=== PATIENT | female | born 1950 | race Caucasian/White ===

== ENCOUNTER 2018-05-28 07:02 | Inpatient (IN) | payer OTHER ==
[~2018-05-28 07:02] MED LIST: ROPIVACAINE 0.2% 80 MG, EPINEPHrine 0.2 MG, KETOROLAC TROMETHAMINE 30 MG in SYRINGE 0 ML IU ONE; TRANEXAMIC ACID 3,000 MG in NS (SYRINGE) 50 ML IRR ONE; TRANEXAMIC ACID 3,000 MG/50 ML BAG IRR ONE
[2018-05-28] MEDS ORDERED: DEXAMETHASONE 4 MG/ML VIAL IVP ONE (07:21)
[2018-05-28] MEDS ORDERED: ceFAZolin 2 GM/DEXTROSE 100 ML IV ONE (07:21)
[2018-05-28] MEDS ORDERED: FAMOTIDINE 20 MG TAB PO ONE (07:21)
[2018-05-28] MEDS ORDERED: ACETAMINOPHEN 325 MG TAB PO ONE (07:21)
[2018-05-28] MEDS ORDERED: LR 1,000 ML IV ONE (07:22)
[2018-05-28] MEDS ORDERED: LIDOCAINE 1% 2 ML INJ ID PRN (07:22)
--- NOTE | 2018-05-28 07:53 | PDHPUP ---
History & Physical Update H&P update statement: This history and physical update is based on an assessment of the patient which was completed after admission or registration (within 24 hours), but prior to the surgery/procedure. H&P update: H&P reviewed & patient examined, no change in patient's condition since H&P completed
--- NOTE | 2018-05-28 08:25 | PDANEPAE ---
ANE History of Present Illness OA here for RTHA ANE Past Medical History - Cardiovascular History Hx Hypertension: No Hx Arrhythmias: No Hx Chest Pain: No Hx Coronary Artery / Peripheral Vascular Disease: No Hx CHF / Valvular Disease: No Hx Palpitations: No - Pulmonary History Hx COPD: No Hx Asthma/Reactive Airway Disease: Yes Hx Recent Upper Respiratory Infection: No Hx Oxygen in Use at Home: No Hx Sleep Apnea: No Sleep Apnea Screening Result - Last Documented: Negative - Neurologic History Hx Cerebrovascular Accident: No Hx Seizures: No Hx Dementia: No Neurologic History Comment: MIGRAINES IN PAST - Endocrine History Hx Diabetes: No - Renal History Hx Renal Disorders: No - Liver History Hx Hepatic Disorders: No Hepatic History Comment: LIBERTAD - Neurological & Psychiatric Hx Hx Neurological and Psychiatric Disorders: Yes Neurological / Psychiatric History Comment: ANXIETY - XANAX - Cancer History Hx Cancer: Yes Cancer History Comment: BREAST CA - Congenital Disorder History Hx Congenital Disorders: No - GI History Hx Gastrointestinal Disorders: No - Other Health History Other Health History: NEG - Chronic Pain History Chronic Pain: Yes (R HIP) - Surgical History Prior Surgeries: TONSILLECTOMY. HYSTERECTOMY. CHOLECYSTECTOMY. BENIGN LIPOMA R EPISCOPAL. BREAST BX L. CHEMO/RADIATION 2013. MASTECTOMY L BREAST. PORT PLACEMENT/REMOVAL. L BREAST IMPLANT ANE Review of Systems Review of Systems: - Exercise capacity METS (RN): 4 METS ANE Patient History - Allergies Allergies/Adverse Reactions: adhesive tape Allergy (Unverified 05/01/18 15:52) Rash Influenza Virus Vaccines Allergy (Unverified 05/01/18 15:52) SWELLING & FEVER - Home Medications Home medications: home medication list seen and reviewed Home Medications: ALPRAZolam [Xanax 1 MG (*)] 1 mg PO TID 04/24/18 [Last Taken 05/28/18 06:45] Acetaminophen [Tylenol 325mg (*)] 325 mg PO Q6 PRN 04/24/18 [Last Taken 22:00] Albuterol [Proventil Inhaler HFA (*)] 1 - 2 puffs IH DAILY PRN 04/24/18 [Last Taken 05/28/18 06:30] Anastrozole [Arimidex 1 mg (*)] 1 mg PO HS 04/24/18 [Last Taken 05/27/18 22:00] Cholecalciferol Vit D3 [Vitamin D3 (*)] 1,000 units PO DAILY 04/24/18 [Last Taken 05/07/18] Fluticasone/Salmeterol [Advair Hfa 45-21 Mcg Inhaler] 1 puffs IH BID 04/24/18 [ Last Taken 05/28/18 06:30] Ipratropium [Atrovent Hfa (*)] 1 puffs IH DAILY PRN 04/24/18 [Last Taken 06:30] Loratadine [Claritin 10 mg] 10 mg PO DAILY 04/24/18 [Last Taken 05/07/18] Montelukast Sodium [Singulair 10 mg (*)] 10 mg PO HS 04/24/18 [Last Taken 22:00] - NPO status NPO Status: no food or drink >8 hours - Anes Hx Anes Hx: no prior problems - Smoking Hx Smoking Status: Never smoked - Alcohol Use Alcohol Use: Rarely - Family Anes Hx Family Anes Hx: none ANE Labs/Vital Signs - Vital Signs Height: 160.02 cm Weight: 65.771 kg ANE Physical Exam - Airway Neck exam: FROM Mallampati Score: Class 2 Mouth exam: normal dental/mouth exam - Pulmonary Pulmonary: no respiratory distress, clear to auscultation - Cardiovascular Cardiovascular: regular rate and rhythym, no murmur, rub, or gallop - ASA Status ASA Status: III ANE Anesthesia Plan Anesthesia Plan: GA with mask, spinal Total IV Anesthesia: Yes
[2018-05-28] MEDS ORDERED: MIDAZOLAM 2 MG/2 ML VIAL IVP ONE (08:26)
[2018-05-28] MEDS ORDERED: PROPOFOL/EMULSION 500 MG/50 ML BOTTLE IV ONE (08:48)
[2018-05-28] MEDS ORDERED: BUPIVACAINE/DEXTROSE 7.5MG/ML 2 ML SPINAL AMP SP ONE (08:51)
[2018-05-28] MEDS ORDERED: PROPOFOL 200 MG/20 ML VIAL ONE (09:53)
[2018-05-28] MEDS ORDERED: METOCLOPRAMIDE 10 MG/2 ML VIAL IVP PRN (10:11)
[2018-05-28] MEDS ORDERED: POLYETHYLENE GLYCOL 3350 17 GM PKT PO PRN (10:11)
[2018-05-28] MEDS ORDERED: PROMETHAZINE HCL 25 MG SUPPR PR PRN (10:11)
[2018-05-28] MEDS ORDERED: ONDANSETRON 4 MG/2 ML VIAL IVP PRN ×2 (10:11→10:14)
[2018-05-28] MEDS ORDERED: CYCLOBENZAPRINE 10 MG TAB PO PRN (10:11)
[2018-05-28] MEDS ORDERED: BISACODYL 10 MG SUPP PR PRN (10:11)
[2018-05-28] MEDS ORDERED: LACTULOSE 20 GM/30 ML UDCUP PO PRN (10:11)
[2018-05-28] MEDS ORDERED: ONDANSETRON DISINTEGRATING 4 MG TAB PO PRN (10:11)
[2018-05-28] MEDS ORDERED: diphenhydrAMINE 25 MG CAP PO PRN (10:11)
[2018-05-28] MEDS ORDERED: MAGNESIUM HYDROXIDE 30 ML UDCUP PO PRN (10:11)
[2018-05-28] MEDS ORDERED: PROMETHAZINE HCL 25 MG/ML INJ IVP PRN ×2 (10:11→10:14)
[2018-05-28] MEDS ORDERED: DIPHENOXYLATE/ATROPINE LOMOTIL 1 TAB PO PRN (10:11)
[2018-05-28] MEDS ORDERED: TEMAZEPAM 15 MG CAP PO PRN (10:11)
--- NOTE | 2018-05-28 10:11 | POSTOPPROG ---
Post Op Note Date of Operation: 05/28/18 Surgeon: Gisel Lord Applications Support Specialist: keara lord Anesthesiologist: dr. steven Anesthesia: Spinal Pre-op Diagnosis: right hip OA Post-op Diagnosis: same Indication: right hip pain Procedure: R MALIA ant approach Findings: severe hip OA Inf/Abcess present in the surg proc area at time of surgery?: No EBL: 100-500
[2018-05-28] MEDS ORDERED: ACETAMINOPHEN 500 MG TAB PO PRN (10:14)
[2018-05-28] MEDS ORDERED: fentaNYL 100 MCG/2 ML INJ IVP PRN (10:14)
[2018-05-28] MEDS ORDERED: oxyCODONE IR 5 MG TAB PO PRN (10:14)
[2018-05-28] MEDS ORDERED: NALOXONE HCL 0.4 MG/ML INJ IVP PRN (10:14)
[2018-05-28] MEDS ORDERED: HYDROmorphONE/DILAUDID 2 MG/ML INJ IVP PRN (10:14)
[2018-05-28] MEDS ORDERED: ALBUTEROL 3 ML DEYVIAL IH PRN (10:14)
--- NOTE | 2018-05-28 10:16 | POSTANESTH ---
Post Anesthetic Evaluation Cardiovascular Status: Normal, Stable, Similar to Pre-Op Cond Respiratory Status: Normal, Stable, Similar to Pre-op Cond. Level of Consciousness/Mental Status: Can Participate in Eval, Alert and Oriented Pain Control: Adequate, Prn Tx Ordered Nausea/Vomiting Control: Adequate, Prn Tx Ordered Complications Possibly Related to Anesthesia: None Noted
[2018-05-28] MEDS ORDERED: LR 1,000 ML IV SCH (10:30)
[2018-05-28] MEDS ORDERED: ALBUTEROL 60 PUFFS/8 GM MDI IH PRN (10:30)
[2018-05-28] MEDS: ACETAMINOPHEN 325 MG TAB PO SCH ×2 (11:40→17:50)
--- NOTE | 2018-05-28 11:56 | PDMN ---
Medical Necessity Medical necessity: Pt meets inpt criteria per MD order and [facility] [place] S-560, Hip Arthroplasty, CPT 91135, Medicare inpt only list. Est LOS>2MN for 67 y/o admitted for R total hip arthroplasty, anterior approach and post-op care.
[2018-05-28] MEDS ORDERED: ALPRAZolam 0.5 MG TAB PO SCH (13:00)
[2018-05-28] MEDS: oxyCODONE IR 5 MG TAB PO PRN ×3 (13:31→21:04)
[2018-05-28] MEDS: ceFAZolin 2 GM/DEXTROSE 100 ML IV SCH (16:30)
[2018-05-28] MEDS: ALPRAZolam 1 MG TAB PO SCH (18:40)
[2018-05-28] MEDS ORDERED: ANASTROZOLE 1 MG TAB PO SCH (21:00)
[2018-05-28] MEDS ORDERED: ALPRAZolam 1 MG TAB PO SCH (21:00)
[2018-05-28] MEDS: FLUTICASONE IH SCH (21:32)
[2018-05-28] MEDS: IPRATROPIUM HFA INHALER IH PRN (21:32)
[2018-05-28] MEDS: SALMETEROL IH SCH (21:32)
[2018-05-28] MEDS: FAMOTIDINE 20 MG TAB PO SCH (22:16)
[2018-05-28] MEDS: SENNOSIDES/DOCUSATE SODIUM TAB PO SCH (22:17)
[2018-05-28] MEDS: ASPIRIN 81 MG CHEWABLE TAB PO SCH (22:17)
[2018-05-29] MEDS: ceFAZolin 2 GM/DEXTROSE 100 ML IV SCH (00:07)
[2018-05-29] MEDS: ACETAMINOPHEN 325 MG TAB PO SCH ×2 (00:08→05:02)
[2018-05-29 08:28] VITALS: BP 115/75
--- NOTE | 2018-05-29 08:40 | SOAPPROG ---
SOAP Progress Note Assessment/Plan: Assessment: Patient is doing well POD 1 s/p R MALIA Pain management: pain is well controlled on oral pain meds. VTE ppx: recommend aspirin 81 mg BID for 4 weeks, cont MARIIA and SCDs Anemia: level is expected initially postop. Asymptomatic. Continue to monitor D/c planning: Patient has done better than anticipated, ok for discharge to home once released from PT Plan: 05/29/18 08:39 Subjective: patient is doing well today, denies SOB,chest pain and N/V. Objective: Vital Signs Temp Pulse Resp BP Pulse Ox 37.1 C 92 13 115/75 95 05/29/18 08:27 05/29/18 08:27 05/29/18 08:27 05/29/18 08:27 05/29/18 08:27 Laboratory Results 05/29/18 04:29 05/28/18 05/29/18 05/30/18 05:59 05:59 05:59 Intake Total 1620 Output Total 1400 Balance 220 RLE: incision dressing is clean and dry, NVI, +pf/df ICD10 Worksheet Patient Problems: Problems Problem Status Onset Primary localized osteoarthritis of right hip Acute
[2018-05-29] MEDS: ASPIRIN 81 MG CHEWABLE TAB PO SCH (09:07)
[2018-05-29] MEDS: SENNOSIDES/DOCUSATE SODIUM TAB PO SCH (09:07)
[2018-05-29] MEDS: ALPRAZolam 1 MG TAB PO SCH (09:07)
[2018-05-29] MEDS: FAMOTIDINE 20 MG TAB PO SCH (09:08)
[2018-05-29] MEDS: IPRATROPIUM HFA INHALER IH PRN (09:10)
[2018-05-29] MEDS: FLUTICASONE IH SCH (09:11)
[2018-05-29] MEDS: SALMETEROL IH SCH (09:11)
--- NOTE | 2018-05-29 10:37 | GOP ---
DATE OF OPERATION: 05/28/2018 SURGEON: Alie Paulino MD SEE SUPERVISOR: Kaci Paulino, BROOKE. ANESTHESIA: Spinal. PREOPERATIVE DIAGNOSIS: Right hip osteoarthritis. POSTOPERATIVE DIAGNOSIS: Right hip osteoarthritis. PROCEDURE PERFORMED: Right total hip arthroplasty with x-ray. FINDINGS: ESTIMATED BLOOD LOSS: 200 cc. INDICATIONS: The patient has progressively worsening arthritis of the hip which has failed medical m anagement. The patient understands the treatment options including continued non-operative care and has selected surgical intervention. The patient has decided to undergo total hip arthroplasty via th e direct anterior approach, understanding the risks of the procedure including, but not limited to, n eurovascular injury, infection, persistent pain, component wear and loosening, deep venous thrombosis , pulmonary embolism, limb length inequality, hip instability (including dislocation), and intra-oper ative fractures. DESCRIPTION OF PROCEDURE: After proper identification of the patient including verification and jose ing the surgical site, the patient was brought to the operating room and placed in the supine positio n. All bony prominences were well padded. Anesthesia was induced without complication and intraveno us prophylactic antibiotics were administered prior to skin incision. The operative leg was placed in the Trumpf Arch table extension and the well leg in a Yellofin leg ho lder. The patient was prepped and draped in the usual sterile fashion. The C-arm was draped for int ra-operative fluoroscopy to check acetabular position, femoral component position including leg lengt h and femoral offset. Attention was then drawn to surgical exposure of the hip. An incision was made with a #10 Bard Danial r blade starting 3 cm lateral and 3 cm distal to the anterior superior iliac spine measuring 8-10 cm and coursing distally toward the greater trochanter. The skin and subcutaneous tissues were divided sharply down to the fascia juan pablo. The fascia juan pablo was incised in line with the skin incision exposing the underlying tensor fascia juan pablo muscle. The muscle was bluntly elevated from the fascia and the f irst extracapsular Cobra retractor was placed laterally at the junction of the superior femoral neck and greater trochanter. The lateral femoral circumflex vessels were identified, cauterized, and divi ded with the Aquamantys bipolar cautery. The deep investing fascia of the TFL was divided to allow p cheryl mobilization of the muscle preventing damage during the retraction. The reflected head of the rectus femoris muscle was elevated off the anterior hip capsule and a medial Cobra retractor was plac ed just proximal to the lesser trochanter. The anterior capsulotomy was made sharply from the superolateral acetabulum to the saddle junction of the superior femoral neck and greater trochanter, then coursing inferomedial towards the lesser troc hanter. The retractors were then placed in the intracapsular position for femoral neck osteotomy. C orresponding to pre-operative templating, the osteotomy was made with the oscillating saw carefully p rotecting the greater trochanter and soft tissues. The femoral head was removed from the acetabulum with a corkscrew and confirmed to be severely arthritic with exposed bone, deformity and osteophytes. Similar findings were confirmed in the acetabulum. The Arch table extension was then placed in 40 degrees external rotation. Attention was then drawn to the acetabular preparation. After placement of the anterior and posterio r Cobra retractors outside the labrum and intracapsular, the circumferential labrum was removed sharp ly. The foveal contents were then removed and hemostasis obtained with cautery. The first reamer selected was sized using the removed femoral head. Reaming began with medialization and then commenced in 2 mm increments at 45 degrees of abduction and 15 degrees of anteversion using fluoroscopic navigation. Reaming ceased 1 mm less than the definitive acetabular component and shashi esponded to the pre-operative templating. The final acetabular component was inserted using fluorosc opy to achieve proper orientation yielding excellent purchase and stability in the acetabulum. The f inal acetabular liner was then placed and its seating confirmed. Attention was then turned to the femur. The Arch table extension was placed in extension and adducti on, delivering the osteotomized femoral neck into the wound. A 2-pronged femoral elevator was placed at the calcar and another at the tip of the greater trochanter. The posterolateral capsule was rele ased with cautery allowing mobilization of the femur lateral and anterior for preparation. The exter nal rotators were visualized and preserved. A curette and rongeur were used to open the starting poi nt for broaching. Serial broaching started with the #0 broach and ended with the broach that exhibit ed excellent fit in the proximal femur. A change in pitch during mallet strikes was accompanied by t he inability to advance the broach any further. The trial reduction was performed and fluoroscopic n avigation was utilized to check limb length. Adjustments were made to equalize limb length according ly. After the final trials were accepted they were removed and the wound was copiously lavaged. The femo ral component was seated to the same depth as the final broach and the femoral head was impacted onto the clean trunnion. The hip was then reduced for the final time and once more fluoroscopy was used to check that limb length equality was achieved. The wound was irrigated and closed in layers, the fascia juan pablo with 2-0 Quill, the subcutaneous tissue with 2-0 Quill, and the skin with Dermabond. Sterile dressings were applied. Final sharps and spon ge counts were accurate. The patient was then transferred to a hospital bed and brought to the [facility] room in stable condition. IMPLANTS: Accolade II size 4 at 132; acetabular component a 52 mm Trident II; liner is Trident X3, 3 6 mm; head is a Biolox Delta 36 mm, -2.5. /[id number]/MODL
--- NOTE | 2018-05-29 12:07 | ASMTLACE ---
[place] Length of stay for Answers: 2 days current admission Acuity / Level of Answers: Yes Care: Did the patient have an inpatient admission? Comorbidities - select Answers: Opioid dependence all that apply / Chronic pain # of Emergency department Answers: 0 visits in the last 6 months Social determinants Answers: Mental health diagnosis (anxiety, depression, pers onality disorders, etc.) Score: 12 Date Signed: 05/29/2018 12:06 PM Electronically Signed By:ROMÁN Michaud
--- NOTE | 2018-05-29 12:08 | ASMTCMCOM ---
CM Note CM Note Notes: Pt s/p OA of hip, resides with spouse. PT rec home/outpatient. Pt medically stable for d/c, no CM d/c needs identified. Date Signed: 05/29/2018 12:08 PM Electronically Signed By:ROMÁN Michaud
== END 2018-05-29 10:07 | disposition home or self-care (01) | DRG 470 ==
LOC: F3N 07:02
PROVIDERS: ADMIT Orthopaedic Surgery; ATTEND Orthopaedic Surgery
PROC: 0SR904Z Replacement of Right Hip Joint with Ceramic on Polyethylene Synthetic Substitute, Open Approach (ICD-10-PCS; principal; 2018-05-28 09:00)
DX: M16.11 Unilateral primary osteoarthritis, right hip (principal); Z85.3 Personal history of malignant neoplasm of breast
CPT/HCPCS: 97110-GP; 97116-GP; 97161-GP; G8978-GP-CK; G8979-GP-CJ; J0171; J0690; J1100; J1885; J2250; J2405; J2704; J2795